=== PATIENT | male | born 1990 | race Caucasian/White ===

== ENCOUNTER → 2016-08-13 | Outpatient (CLI) | payer OTHER ==
--- NOTE | 2016-08-13 15:52 | RAD ---
Left ankle, 3 views, 08/13/2016: History: Ankle pain and swelling No fracture or dislocation is identified. There is moderate diffuse soft tissue swelling. IMPRESSION: No acute bony abnormality is detected.
== END | disposition home or self-care (01) ==
LOC: DXRADRC 14:31
PROVIDERS: ATTEND General Practice
DX: S99.912D Unspecified injury of left ankle, subsequent encounter (principal); M25.472 Effusion, left ankle; V29.9XXD Motorcycle rider (driver) (passenger) injured in unspecified traffic accident, subsequent encounter
CPT/HCPCS: 73610